=== PATIENT | female | born 1980 | race Two or more races ===

== ENCOUNTER 2019-01-19 11:39 | Outpatient (CLI) | payer OTHER | END 2019-01-19 12:30 | disposition home or self-care (01) | LOC: PRENATAL 11:39 | DX: O26.843 Uterine size-date discrepancy, third trimester (principal); O09.513 Supervision of elderly primigravida, third trimester; O99.213 Obesity complicating pregnancy, third trimester ==

== ENCOUNTER → 2019-01-27 | Outpatient (CLI) | payer OTHER ==
[~2019-01-27] MED LIST: PRENATAL TABLE1 EAC1 PO
== END | disposition home or self-care (01) ==
LOC: PRENATAL 08:31
DX: O99.213 Obesity complicating pregnancy, third trimester (principal); O09.513 Supervision of elderly primigravida, third trimester; O36.8131 Decreased fetal movements, third trimester, fetus 1

== ENCOUNTER 2019-02-03 07:53 | Inpatient (IN) | payer OTHER ==
[~2019-02-03] VITALS: Ht 167.6 cm; Wt 2.3 kg
[2019-02-03] MEDS ORDERED: PRENATAL TABLE1 EAC1 PO (12:11)
== END 2019-02-07 12:25 | disposition home or self-care (01) | DRG 788 ==
LOC: OB/GYN 07:53 → LDR 07:53 → O/R 02-04 14:34 → OB/GYN 02-04 16:48
PROVIDERS: ADMIT Specialist
PROC: 3E0P7VZ Introduction of Hormone into Female Reproductive, Via Natural or Artificial Opening (ICD-10-PCS; 2019-02-03)
PROC: 4A1HXCZ Monitoring of Products of Conception, Cardiac Rate, External Approach (ICD-10-PCS; 2019-02-03)
PROC: 3E033VJ Introduction of Other Hormone into Peripheral Vein, Percutaneous Approach (ICD-10-PCS; 2019-02-04)
PROC: 10D00Z1 Extraction of Products of Conception, Low, Open Approach (ICD-10-PCS; principal; 2019-02-04 14:00)
DX: O82 Encounter for cesarean delivery without indication (principal); O74.7 Failed or difficult intubation for anesthesia during labor and delivery; Z3A.39 39 weeks gestation of pregnancy; Z37.0 Single live birth